=== PATIENT | male | born 1995 | race African-American/Black ===

== ENCOUNTER 2019-03-26 05:36 | Emergency (ER) | payer BC, OTHER ==
[~2019-03-26] VITALS: Ht 172.7 cm; Wt 104.3 kg
[~2019-03-26 05:36] MED LIST: AMOXICILLIN500 M1 PO
[2019-03-26 07:01] LABS: HEMATOCRIT 44.8 % (42.0-52.0); HEMOGLOBIN 14.8 gm/dL (14.0-18.0); MCH 29.9 pg (26.0-34.0); MCHC 32.9 g/dL (28.0-37.0); MCV 90.6 fL (80.0-100.0); RBC 4.94 mil/uL (4.50-6.00); RDW 13.4 % (10.5-14.5); WBC 5.4 thou/uL (4.0-11.0)
[2019-03-26 07:08] LABS: CALCIUM 9.4 mg/dL (8.5-10.1); CREATININE 1.1 mg/dL (0.7-1.3)
[2019-03-26 07:14] LABS: ALBUMIN 4.2 g/dL (3.4-5.0); TOTAL BILIRUBIN 0.5 mg/dL (<0.1-1.0); TOTAL PROTEIN 8.1 g/dL (6.4-8.2); URIC ACID* 5.5 mg/dL (2.6-7.2)
[2019-03-26] MEDS ORDERED: PEPCID20 MG PO (07:39)
[2019-03-26] MEDS ORDERED: PREDNISONE 20 M20 MG PO (07:39)
[2019-03-26 07:45] VITALS: BP 120/71
== END 2019-03-26 07:45 | disposition home or self-care (01) ==
LOC: ER 05:36
PROVIDERS: Emergency Medicine
DX: T78.40XA Allergy, unspecified, initial encounter (principal); M79.89 Other specified soft tissue disorders; J45.909 Unspecified asthma, uncomplicated; X58.XXXA Exposure to other specified factors, initial encounter